=== PATIENT | female | born 1985 | race African-American/Black ===

== ENCOUNTER 2019-05-31 16:39 | Emergency (ER) | payer MEDICAID ==
--- NOTE | 2019-05-31 18:13 | ER Document Report ---
ED Medical Screen (RME) - General Chief Complaint: Abdominal Pain Stated Complaint: ABDOMINAL PAIN Time Seen by Provider: 05/31/19 18:04 Mode of Arrival: Ambulatory Information source: Patient Notes: Patient is an otherwise healthy 34-year-old female presented to the emergency department chief complaint of low abdominal cramping. She reports she is 6 weeks . She is a G3, P1. She states that she has no vaginal bleeding or abnormal discharge. She is concerned she has been having a miscarriage. Patient reports all symptoms started yesterday. Exam: Abdomen soft, nontender, no guarding no rebound. I have greeted and performed a rapid initial assessment of this patient. A comprehensive ED assessment and evaluation of the patient, analysis of test results and completion of the medical decision making process will be conducted by additional ED providers. I have specifically instructed the patient or family members with the patient to immediately return to any nursing staff should anything change in the patient's condition or with their chief complaint. This medical record was dictated with voice recognizing software. There may be grammatical, syntax errors that are unintended. - Related Data Allergies/Adverse Reactions: No Known Allergies Allergy (Unverified 05/31/19 16:41) Physical Exam - Vital signs Vitals: Temp Pulse Resp BP Pulse Ox 98.7 F 72 20 116/66 100 05/31/19 16:59 05/31/19 16:59 05/31/19 16:59 05/31/19 16:59 05/31/19 16:59 Course - Vital Signs Vital signs: Temp Pulse Resp BP Pulse Ox 98.7 F 72 20 116/66 100 05/31/19 16:59 05/31/19 16:59 05/31/19 16:59 05/31/19 16:59 05/31/19 16:59
[2019-05-31 18:43] LABS: ABSOLUTE EOSINOPHILS # (AUTO) 0.1 10^3/uL (0.0-0.6); ABSOLUTE MONOCYTES (AUTO) 0.9 10^3/uL (0.1-1.4); ABSOLUTE NEUT (AUTO) 2.4 10^3/uL (1.7-8.2); BASOPHILS % (AUTO) 0.4 % (0-2); EOSINOPHILS % (AUTO) 1.5 % (0-6); HEMATOCRIT 35.1 % (36.0-47.0); HEMOGLOBIN 11.9 g/dL (12.0-15.5); LYMPHOCYTES % (AUTO) 37.1 % (13-45); MEAN CORPUSCULAR HEMOGLOBIN 29.7 pg (27.0-33.4); MEAN CORPUSCULAR HGB CONC 33.8 g/dL (32.0-36.0); MEAN CORPUSCULAR VOLUME 88 fl (80-97); PLATELET COUNT 286 10^3/uL (150-450); RED CELL DISTRIBUTION WIDTH 13.8 % (11.5-14.0); TOTAL CELLS COUNTED % (AUTO) 100 %; WHITE BLOOD COUNT 5.5 10^3/uL (4.0-10.5)
[2019-05-31 18:49] LABS: APPEARANCE,URINE SLIGHTLY-CLOUDY; BILIRUBIN,URINE NEGATIVE (NEGATIVE); COLOR,URINE YELLOW; GLUCOSE, URINE NEGATIVE (NEGATIVE); KETONES,URINE NEGATIVE (NEGATIVE); LEUKOCYTE ESTERASE,URINE TRACE (NEGATIVE); NITRITE,URINE NEGATIVE (NEGATIVE); PROTEIN,URINE NEGATIVE (NEGATIVE); URINE SPECIFIC GRAVITY 1.023; UROBILINOGEN,URINE NEGATIVE mg/dL (<2.0)
--- NOTE | 2019-05-31 20:44 | RADIOLOGY REPORT (SQ) ---
US PELVIS EXAM DATE: 05/31/2019 6:10 PM CDT HISTORY: Early . Pelvic pain. COMPARISON: None. TECHNIQUE: Grayscale, color Doppler, and spectral Doppler ultrasound images of the pelvis were obtained. FINDINGS: There is an intrauterine gestational sac with a yolk sac and pole visualized. The crown-rump length is 0.9 cm corresponding to 6 weeks 6 days of . heart rate is 127 bpm. There is a 1.4 cm adjacent subchorionic hemorrhage. Both ovaries are normal in size and contain normal follicles, with the right ovary measuring 3.3 cm and the left ovary measuring 4.9 cm. There is a 1.9 cm left ovarian corpus luteum cyst. No pelvic free fluid. IMPRESSION: Single live IUP with estimated gestational age 6 weeks 6 days.
--- NOTE | 2019-05-31 21:01 | ER Document Report ---
ED GI/ - General Chief Complaint: Abdominal Pain Stated Complaint: ABDOMINAL PAIN Time Seen by Provider: 05/31/19 18:04 Mode of Arrival: Ambulatory Notes: Patient is an otherwise healthy 34-year-old female presented to the emergency department chief complaint of low abdominal cramping. She reports she is 6 weeks . She is a G3, P1. She states that she has no vaginal bleeding or abnormal discharge. She is concerned she has been having a miscarriage. Patient reports all symptoms started yesterday. - Related Data Allergies/Adverse Reactions: No Known Allergies Allergy (Unverified 05/31/19 16:41) Past Medical History - General Information source: Patient - Social History Smoking Status: Never Smoker Frequency of alcohol use: None Drug Abuse: None Family History: Reviewed & Not Pertinent - Medical History Medical History: Negative Surgical Hx: Negative - Immunizations Immunizations up to date: Yes Review of Systems - Review of Systems Constitutional: No symptoms reported EENT: No symptoms reported Cardiovascular: No symptoms reported Respiratory: No symptoms reported Gastrointestinal: Abdominal pain Genitourinary: No symptoms reported Female Genitourinary: No symptoms reported Musculoskeletal: No symptoms reported Skin: No symptoms reported Hematologic/Lymphatic: No symptoms reported Neurological/Psychological: No symptoms reported Physical Exam - Vital signs Vitals: Temp Pulse Resp BP Pulse Ox 98.7 F 72 20 116/66 100 05/31/19 16:59 05/31/19 16:59 05/31/19 16:59 05/31/19 16:59 05/31/19 16:59 - Notes Notes: PHYSICAL EXAMINATION: GENERAL: Well-appearing, well-nourished and in no acute distress. HEAD: Atraumatic, normocephalic. EYES: Pupils equal round and reactive to light, extraocular movements intact, conjunctiva are normal. ENT: Nares patent, oropharynx clear without exudates. Moist mucous membranes. NECK: Normal range of motion, supple without lymphadenopathy LUNGS: Breath sounds clear to auscultation bilaterally and equal. No wheezes rales or rhonchi. HEART: Regular rate and rhythm without murmurs ABDOMEN: Soft, nontender, nondistended abdomen. No guarding, no rebound. No masses appreciated. Female : deferred Musculoskeletal: Normal range of motion, no pitting or edema. No cyanosis. NEUROLOGICAL: Cranial nerves grossly intact. Normal speech, normal gait. Normal sensory, motor exams PSYCH: Normal mood, normal affect. SKIN: Warm, Dry, normal turgor, no rashes or lesions noted. Course - Re-evaluation Re-evalutation: Laboratory 05/31/19 05/31/19 05/31/19 18:10 18:10 18:10 WBC 5.5 RBC 4.00 Hgb 11.9 L Hct 35.1 L MCV 88 MCH 29.7 MCHC 33.8 RDW 13.8 Plt Count 286 Seg Neutrophils % 44.0 Lymphocytes % 37.1 Monocytes % 17.0 H Eosinophils % 1.5 Basophils % 0.4 Absolute Neutrophils 2.4 Absolute Lymphocytes 2.0 Absolute Monocytes 0.9 Absolute Eosinophils 0.1 Absolute Basophils 0.0 Beta HCG, Quant 37915.00 H Total Beta HCG POSITIVE Urine Color Urine Appearance Urine pH Ur Specific [place] Urine Protein Urine Glucose (UA) Urine Ketones Urine Blood Urine Nitrite Urine Bilirubin Urine Urobilinogen Ur Leukocyte Esterase Urine WBC (Auto) Urine RBC (Auto) Squamous Epi Cells Auto Urine Mucus (Auto) Urine Ascorbic Acid Blood Type O POSITIVE Rhogam Indicated RHOGAM NOT INDICATED 05/31/19 18:10 WBC RBC Hgb Hct MCV MCH MCHC RDW Plt Count Seg Neutrophils % Lymphocytes % Monocytes % Eosinophils % Basophils % Absolute Neutrophils Absolute Lymphocytes Absolute Monocytes Absolute Eosinophils Absolute Basophils Beta HCG, Quant Total Beta HCG Urine Color YELLOW Urine Appearance SLIGHTLY-CLOUDY Urine pH 5.0 Ur Specific [place] 1.023 Urine Protein NEGATIVE Urine Glucose (UA) NEGATIVE Urine Ketones NEGATIVE Urine Blood NEGATIVE Urine Nitrite NEGATIVE Urine Bilirubin NEGATIVE Urine Urobilinogen NEGATIVE Ur Leukocyte Esterase TRACE H Urine WBC (Auto) 2 Urine RBC (Auto) 1 Squamous Epi Cells Auto 5 Urine Mucus (Auto) RARE Urine Ascorbic Acid 40 H Blood Type Rhogam Indicated Obstetrics Ultrasound 05/31/19 18:10 IMPRESSION: Single live IUP with estimated gestational age 6 weeks 6 days. All test results were discussed with patient. Patient will follow-up with [facility]. ED return ED return precautions were discussed with patient, patient verbalizes understanding and agreement with plan. The patient's emergency department workup and current diagnosis were explained to the patient and or family. Follow-up instructions were provided. Medications if prescribed were discussed. Instructions for when to return to the emergency department including specific worrisome symptoms were discussed with the patient and/or family. - Vital Signs Vital signs: Temp Pulse Resp BP Pulse Ox 98.4 F 80 18 137/80 H 100 05/31/19 21:02 05/31/19 21:02 05/31/19 21:02 05/31/19 21:02 05/31/19 21:02 - Laboratory Result Diagrams: 05/31/19 18:10 Laboratory results interpreted by me: 05/31/19 05/31/19 05/31/19 18:10 18:10 18:10 Hgb 11.9 L Hct 35.1 L Monocytes % 17.0 H Beta HCG, Quant 98279.00 H Ur Leukocyte Esterase TRACE H Urine Ascorbic Acid 40 H Discharge - Discharge Clinical Impression: Abdominal pain affecting Condition: Stable Disposition: HOME, SELF-CARE Additional Instructions: You were seen in the emergency department today for abdominal pain during . All of your blood work looked okay. The ultrasound report is enclosed and there does not appear to be any issue with the at this time. Please have close follow-up with your [facility]. For the time being if you continue to have low abdominal or pelvic pain no sexual intercourse until cleared by [facility].
[2019-05-31 21:02] VITALS: BP 137/80
== END 2019-05-31 21:10 | disposition home or self-care (01) ==
LOC: ER 16:39
DX: O26.891 Other specified pregnancy related conditions, first trimester (principal); R10.9 Unspecified abdominal pain; R10.30 Lower abdominal pain, unspecified; Z3A.01 Less than 8 weeks gestation of pregnancy
CPT/HCPCS: 36415; 76817; 81001; 84702; 85025; 86900; 86901; 99284